=== PATIENT | female | born 1960 | race Two or more races ===

== ENCOUNTER 2024-12-03 19:00 | Inpatient (IN) | payer OTHER ==
[~2024-12-03] VITALS: Ht 154.9 cm; Wt 71.2 kg
[2024-12-03] MEDS ORDERED: ONDANSETRON HCL/PF 4 MG/2 ML VIAL ONE (21:10)
[2024-12-03] MEDS ORDERED: PANTOPRAZOLE 40 MG VIAL ONE (21:10)
[2024-12-03] MEDS: PANTOPRAZOLE 40 MG VIAL IV ONE (21:28)
[2024-12-03] MEDS: ONDANSETRON HCL/PF 4 MG/2 ML VIAL IVP ONE (21:29)
[2024-12-03] MEDS: IV NS 0.9% 500 ML BAG IV ONE (21:29)
[2024-12-03 21:39] LABS: BASOPHILS % (AUTO) 0.1 % (0.0-2.0); EOSINOPHILS # (AUTO) 0.5 K/uL (0.0-0.7); HEMATOCRIT 35 % (33-45); HEMOGLOBIN 10.9 g/dL (11.5-14.8); LYMPHOCYTES # (AUTO) 0.5 K/uL (0.8-4.8); LYMPHOCYTES % (AUTO) 1.9 % (20.0-44.0); MEAN CORPUSCULAR HEMOGLOBIN 27 PG (26.0-33.0); MEAN CORPUSCULAR HGB CONC 31 g/dl (31.0-36.0); MEAN CORPUSCULAR VOLUME 87 fL (82-100); MONOCYTES # (AUTO) 0.2 K/uL (0.1-1.30); MONOCYTES % (AUTO) 0.7 % (2.0-12.0); NEUTROPHILS % (AUTO) 95.3 % (43.0-81.0); PLATELET COUNT (AUTO) 310 K/uL (150-450); RED CELL DISTRIBUTION WIDTH 20.6 % (11.5-15.0); WHITE BLOOD COUNT (AUTO) 24.2 K/uL (4.3-11.0)
[2024-12-03 21:51] LABS: CREATININE 1.1 mg/dL (0.6-1.3); POTASSIUM 4.6 mmol/L (3.5-5.1)
[2024-12-03 22:04] LABS: ALBUMIN 1.6 g/dL (3.4-5.0); BILIRUBIN,DIRECT 0.6 mg/dL (0.0-0.2); BILIRUBIN,TOTAL 0.9 mg/dL (0.2-1.0); TOTAL PROTEIN, SERUM 7.8 g/dL (6.4-8.2)
[2024-12-03] MEDS ORDERED: DEXTROSE 50%-WATER 50 ML DISP.SYRIN ONE (22:07)
[2024-12-03] MEDS: DEXTROSE 50%-WATER 50 ML DISP.SYRIN IVP ONE (22:14)
[2024-12-03 22:34] LABS: LACTIC ACID 6.7 mmol/L (0.4-2.0)
[2024-12-03 22:39] LABS: BILIRUBIN,URINE 1+ (NEGATIVE); BLOOD, URINE 2+ Ery/uL (NEGATIVE); KETONES,URINE TRACE mg/dL (NEGATIVE); LEUKOCYTE ESTERASE ,URINE 2+ (NEGATIVE); NITRITE, URINE NEGATIVE (NEGATIVE); UGLUCOSE NEGATIVE (NEGATIVE)
[2024-12-03] MEDS ORDERED: VANCOMYCIN 1 GM /D5W 250 ML PB IV ONE (22:39)
[2024-12-03] MEDS ORDERED: PIPERACI/TAZO 3.375GM/D5W 50ML PB IV ONE (22:40)
[2024-12-03 22:48] LABS: ADD URINE CULTURE YES; BACTERIA,URINE Many /HPF (None Seen); WBC,URINE 51-80 /HPF (0-3)
[2024-12-03 22:49] LABS: SQUAMOUS EPITHELIAL CELL,UR Few /HPF (None Seen)
[2024-12-03] MEDS: IV NS 0.9% 1,000 ML BAG IV ONE (22:51)
[2024-12-03 22:53] LABS: APPEARANCE,URINE TURBID (CLEAR)
[2024-12-03 22:58] LABS: PROTEIN,URINE 3+ mg/dl (NEGATIVE)
[2024-12-03] MEDS: PIPERACILLIN /TAZOBACTAM 3.375 G in IV D5W 50 ML IV ONE (22:58)
[2024-12-03 23:01] LABS: COLOR,URINE YELLOW (YELLOW)
[2024-12-03 23:11] LABS: ANISOCYTOSIS 1+; LYMPHOCYTES % (MANUAL) 2 % (16-48); MONOCYTES % (MANUAL) 1 % (0-11.0); NEUTROPHILS % (MANUAL) 97 (42-76); PLATELET ESTIMATE ADEQUATE
[2024-12-03 23:27] LABS: SITE, VBG RIGHT RADIAL; VBG COHb 0.3 % (0.5-1.5); VBG HCO3 16.7 mmol/L (22.0-29.0); VBG MetHb 0.1 % (0.5-1.5); VBG O2Hb 94.5 % (0-79); VBG OXYGEN SATURATION 94.9 % (60.0-85.0); VBG PCO2 21.2 mmHg (38.0-54.0); VBG PH 7.513 (7.320-7.430); VBG PO2 76.1 mmHg (23.0-48.0); VBG TOTAL HEMOGLOBIN 9.2 G/dL (12.0-16.0)
[2024-12-03] MEDS: VANCOMYCIN 1 GM in IV D5W 250 ML IV ONE (23:29)
[2024-12-04] VITALS (29 sets, daily range): BP systolic 84–118; BP diastolic 55–79; TEMP 97.8; O2SAT 93–98
[2024-12-04] MEDS: IV NS 0.9% 1,000 ML BAG IV ONE (00:52)
[2024-12-04] MEDS ORDERED: MAG HYDROX/AL HYDROX/SIMETH 30 ML UDC PO PRN (02:30)
[2024-12-04] MEDS ORDERED: ACETAMINOPHEN 325 MG TABLET PO PRN ×2 (02:30→16:00)
[2024-12-04] MEDS ORDERED: MAGNESIUM HYDROXIDE 30 ML UDC PO PRN ×2 (02:30→16:00)
[2024-12-04] MEDS ORDERED: Z GUARD REMEDY 4 OZ OINT TP PRN (02:30)
[2024-12-04] MEDS: IV NS 0.9% 1,000 ML IV SCH (02:44)
[2024-12-04 03:28] LABS: CALCIUM, SERUM 8.2 mg/dL (8.5-10.1); CREATININE 1.3 mg/dL (0.6-1.3)
[2024-12-04] MEDS ORDERED: PIPERACILLIN /TAZOBACTAM 3.375 G in IV D5W 50 ML IV SCH (05:00)
[2024-12-04] MEDS ORDERED: MORPHINE SULFATE INJ 4 MG/ML DISP.SYRIN ONE ×2 (05:04→12:54)
[2024-12-04] MEDS ORDERED: NOREPINEPHRINE 8MG/250ML RTU 250 ML IV ONE ×3 (05:19→12:54)
[2024-12-04] MEDS ORDERED: NOREPINEPHRINE 8 MG in IV D5W 242 ML IV PRN (05:30)
[2024-12-04] MEDS: NOREPINEPHRINE 8 MG in IV D5W 242 ML IV PRN (05:32)
[2024-12-04] MEDS: MORPHINE SULFATE INJ 4 MG/ML DISP.SYRIN IV PRN (05:32)
[2024-12-04] MEDS ORDERED: PIPERACI/TAZO 3.375GM/D5W 50ML PB IV ONE (06:24)
[2024-12-04] MEDS: ZOSYN IVPB 3.375 G in IV D5W 50ml IV ONE (06:30)
[2024-12-04] MEDS ORDERED: ENOXAPARIN SODIUM 40 MG/0.4 ML DISP.SYRIN SQ ONE (06:36)
[2024-12-04] MEDS: ENOXAPARIN SODIUM 40 MG/0.4 ML DISP.SYRIN SQ SCH (06:36)
[2024-12-04] MEDS: IV NS 0.9% 1,000 ML IV PRN (07:30)
[2024-12-04] MEDS ORDERED: BISA10SU11 RC (08:24)
[2024-12-04] MEDS ORDERED: MAGN400O6 PO (08:24)
[2024-12-04] MEDS ORDERED: OXYC1TAB10 PO (08:24)
[2024-12-04] MEDS ORDERED: SENN-261 PO (08:24)
[2024-12-04] MEDS ORDERED: AMIN30LI25 PO (08:24)
[2024-12-04] MEDS ORDERED: MULT-213 PO (08:24)
[2024-12-04] MEDS ORDERED: ASCO500T10 PO (08:24)
[2024-12-04] MEDS ORDERED: CALC-494 PO (08:24)
[2024-12-04] MEDS ORDERED: ZINC220C6 PO (08:24)
[2024-12-04] MEDS ORDERED: LACT10SO29 PO (08:24)
[2024-12-04] MEDS ORDERED: LEVO75TA7 PO (08:24)
[2024-12-04] MEDS ORDERED: POTA-88 PO (08:24)
[2024-12-04] MEDS ORDERED: FERR325T24 PO (08:24)
[2024-12-04] MEDS ORDERED: ACET325T53 PO (08:24)
[2024-12-04] MEDS ORDERED: ALBU18HF2 IH (08:24)
[2024-12-04] MEDS ORDERED: FURO20TA4 PO (08:24)
[2024-12-04] MEDS ORDERED: ONDA-97 PO (08:24)
[2024-12-04] MEDS ORDERED: NA P133E RC (08:24)
[2024-12-04] MEDS: PANTOPRAZOLE 40 MG VIAL IV SCH (09:00)
[2024-12-04] MEDS ORDERED: PANTOPRAZOLE 40 MG VIAL ONE (09:07)
[2024-12-04] MEDS: DAKINS QUARTER STRENGTH (0.125%) 480 ML BOTTLE TOP SCH (10:59)
[2024-12-04] MEDS ORDERED: ONDANSETRON HCL/PF 4 MG/2 ML VIAL ONE (12:54)
[2024-12-04] MEDS: ONDANSETRON HCL/PF 4 MG/2 ML VIAL IVP PRN (13:15)
[2024-12-04] MEDS: ZOSYN IVPB 2.25 G in IV D5W 50ml IV SCH (13:30)
[2024-12-04] MEDS ORDERED: METH10OR11 PO (14:46)
[2024-12-04 15:16] LABS: HEMATOCRIT 25 % (33-45)
[2024-12-04 15:23] LABS: EOSINOPHILS # (AUTO) 1.1 K/uL (0.0-0.7); EOSINOPHILS % (AUTO) 2.6 % (0.0-6.0); HEMOGLOBIN 7.9 g/dL (11.5-14.8); LYMPHOCYTES # (AUTO) 0.6 K/uL (0.8-4.8); LYMPHOCYTES % (AUTO) 1.4 % (20.0-44.0); MEAN CORPUSCULAR HEMOGLOBIN 27 PG (26.0-33.0); MEAN CORPUSCULAR HGB CONC 32 g/dl (31.0-36.0); MEAN CORPUSCULAR VOLUME 85 fL (82-100); MONOCYTES # (AUTO) 0.4 K/uL (0.1-1.30); MONOCYTES % (AUTO) 0.9 % (2.0-12.0); NEUTROPHILS # (AUTO) 41.9 K/uL (1.8-8.9); NEUTROPHILS % (AUTO) 95.1 % (43.0-81.0); PLATELET COUNT (AUTO) 283 K/uL (150-450); RED BLOOD CELL COUNT(AUTO) 2.92 MIL/uL (4.0-5.2); RED CELL DISTRIBUTION WIDTH 20.4 % (11.5-15.0)
[2024-12-04 15:25] LABS: WHITE BLOOD COUNT (AUTO) 44.1 K/uL (4.3-11.0)
[2024-12-04 15:31] LABS: BILIRUBIN,TOTAL 0.7 mg/dL (0.2-1.0); CALCIUM, SERUM 7.9 mg/dL (8.5-10.1); CREATININE 0.8 mg/dL (0.6-1.3); MAGNESIUM 1.3 mg/dL (1.8-2.4); PHOSPHORUS 4.3 mg/dL (2.5-4.9); POTASSIUM 3.3 mmol/L (3.5-5.1); TOTAL PROTEIN, SERUM 6.1 g/dL (6.4-8.2)
[2024-12-04 15:36] LABS: ALBUMIN 1.3 g/dL (3.4-5.0)
[2024-12-04 15:37] LABS: THYROID STIMULATING HORMONE 4.3 uIU/mL (0.358-3.74)
[2024-12-04 16:00] LABS: LACTIC ACID 2.4 mmol/L (0.4-2.0)
[2024-12-04] MEDS ORDERED: NA PHOS,M-B/NA PHOS,DI-BA 1 EA ENEMA RC PRN (16:00)
[2024-12-04] MEDS ORDERED: LACTULOSE 10 G/15 ML UDC (PYXIS) PO PRN (16:07)
[2024-12-04] MEDS: Magnesium 1GM/D5W 100ML PREMIX 100 ML IV SCH (16:26)
[2024-12-04] MEDS: POTASSIUM CHLORIDE 20 MEQ TAB.PRT.SR PO SCH (16:26)
[2024-12-04] MEDS: FERROUS SULFATE (325 MG) 325 MG/TAB TABLET PO SCH (16:26)
[2024-12-04] MEDS: PROSOURCE / PROSTAT (PYXIS) 30 ML UDC PO SCH (16:27)
[2024-12-04] MEDS ORDERED: ALBUTEROL FS 2.5 MG/0.5 ML VIAL.NEB NEB PRN (16:30)
[2024-12-04] MEDS: CALCIUM CARBONATE 500 MG TAB.CHEW PO SCH (17:00)
[2024-12-04 17:14] LABS: ANISOCYTOSIS 1+; BAND % (MANUAL) 1 % (0.0-5.0); BASOPHILS % (MANUAL) 0 % (0.0-2.0); EOSINOPHILS % (MANUAL) 0 % (0-4); LYMPHOCYTES % (MANUAL) 3 % (16-48); MONOCYTES % (MANUAL) 0 % (0-11.0); NEUTROPHILS % (MANUAL) 96 (42-76); PLATELET ESTIMATE ADEQUATE
[2024-12-04] MEDS: oxyCODONE/APAP (5/325 MG) 1 UDTAB TABLET PO PRN (17:40)
[2024-12-04] MEDS: SENNOSIDES 8.6 MG TABLET PO SCH (22:00)
[2024-12-04] MEDS: VANCOMYCIN 1 GM in IV D5W 250ml IV SCH (22:15)
[2024-12-05] VITALS (96 sets, daily range): BP systolic 83–116; BP diastolic 49–81; TEMP 97.2–99.3; O2SAT 91–97
[2024-12-05 04:55] LABS: BILIRUBIN,TOTAL 0.5 mg/dL (0.2-1.0); CALCIUM, SERUM 7.5 mg/dL (8.5-10.1); CREATININE 0.6 mg/dL (0.6-1.3); MAGNESIUM 2.2 mg/dL (1.8-2.4); PHOSPHORUS 3.7 mg/dL (2.5-4.9); TOTAL PROTEIN, SERUM 5.7 g/dL (6.4-8.2)
[2024-12-05 05:00] LABS: ALBUMIN 1.1 g/dL (3.4-5.0); POTASSIUM 2.8 mmol/L (3.5-5.1)
[2024-12-05 05:04] LABS: EOSINOPHILS # (AUTO) 0.5 K/uL (0.0-0.7); EOSINOPHILS % (AUTO) 1.5 % (0.0-6.0); HEMATOCRIT 25 % (33-45); LYMPHOCYTES # (AUTO) 0.4 K/uL (0.8-4.8); LYMPHOCYTES % (AUTO) 1.2 % (20.0-44.0); MEAN CORPUSCULAR HEMOGLOBIN 27 PG (26.0-33.0); MEAN CORPUSCULAR HGB CONC 31 g/dl (31.0-36.0); MEAN CORPUSCULAR VOLUME 86 fL (82-100); MONOCYTES # (AUTO) 0.2 K/uL (0.1-1.30); MONOCYTES % (AUTO) 0.7 % (2.0-12.0); NEUTROPHILS # (AUTO) 30.8 K/uL (1.8-8.9); NEUTROPHILS % (AUTO) 96.6 % (43.0-81.0); PLATELET COUNT (AUTO) 201 K/uL (150-450); RED BLOOD CELL COUNT(AUTO) 2.94 MIL/uL (4.0-5.2); RED CELL DISTRIBUTION WIDTH 20.4 % (11.5-15.0)
[2024-12-05 05:07] LABS: WHITE BLOOD COUNT (AUTO) 31.9 K/uL (4.3-11.0)
[2024-12-05 05:38] LABS: BASOPHILS % (MANUAL) 0 % (0.0-2.0); EOSINOPHILS % (MANUAL) 0 % (0-4); LYMPHOCYTES % (MANUAL) 4 % (16-48); MONOCYTES % (MANUAL) 1 % (0-11.0); NEUTROPHILS % (MANUAL) 95 (42-76); PLATELET ESTIMATE ADEQUATE
[2024-12-05] MEDS: POTASSIUM CL. PREMIX PERIPHER. 50 ML IV SCH (05:52)
[2024-12-05] MEDS: POTASSIUM CHLORIDE 20 MEQ POWDER PACKET PO ONE (05:52)
[2024-12-05] MEDS: LEVOTHYROXINE SODIUM 75 MCG TABLET PO SCH (07:23)
[2024-12-05] MEDS: BISACODYL SUPP (10 MG) 10 MG/SUPP.RECT SUPP.RECT RC SCH (08:21)
[2024-12-05] MEDS: ASCORBIC ACID 500 MG TABLET PO SCH (08:21)
[2024-12-05] MEDS: ZINC SULFATE 220 MG CAPSULE PO SCH (08:21)
[2024-12-05] MEDS: MULTIVIT W/MINERALS 1 TAB TABLET PO SCH (08:21)
[2024-12-05] MEDS: METHADONE HCL 10 MG TABLET PO SCH (09:04)
[2024-12-05] MEDS: ZOSYN IVPB 3.375 G in IV D5W 50ml IV SCH (12:47)
[2024-12-05 13:33] LABS: CALCIUM, SERUM 7.4 mg/dL (8.5-10.1); CREATININE 0.6 mg/dL (0.6-1.3); POTASSIUM 3.5 mmol/L (3.5-5.1)
[2024-12-05 15:14] LABS: CALCIUM, SERUM 7.1 mg/dL (8.5-10.1); CREATININE 0.5 mg/dL (0.6-1.3); POTASSIUM 3.6 mmol/L (3.5-5.1)
[2024-12-05] MEDS: VANCOMYCIN 1 GM in IV D5W 250ml IV SCH (17:06)
[2024-12-06] VITALS (79 sets, daily range): BP systolic 83–123; BP diastolic 44–85; TEMP 98.3–99.3; O2SAT 90–95
[2024-12-06 04:40] LABS: EOSINOPHILS # (AUTO) 0.3 K/uL (0.0-0.7); EOSINOPHILS % (AUTO) 1.3 % (0.0-6.0); HEMATOCRIT 22 % (33-45); LYMPHOCYTES # (AUTO) 0.7 K/uL (0.8-4.8); LYMPHOCYTES % (AUTO) 2.8 % (20.0-44.0); MEAN CORPUSCULAR HEMOGLOBIN 28 PG (26.0-33.0); MEAN CORPUSCULAR HGB CONC 32 g/dl (31.0-36.0); MEAN CORPUSCULAR VOLUME 86 fL (82-100); MONOCYTES # (AUTO) 0.4 K/uL (0.1-1.30); MONOCYTES % (AUTO) 1.5 % (2.0-12.0); NEUTROPHILS # (AUTO) 23.1 K/uL (1.8-8.9); NEUTROPHILS % (AUTO) 94.4 % (43.0-81.0); PLATELET COUNT (AUTO) 164 K/uL (150-450); RED BLOOD CELL COUNT(AUTO) 2.52 MIL/uL (4.0-5.2); RED CELL DISTRIBUTION WIDTH 20.4 % (11.5-15.0); WHITE BLOOD COUNT (AUTO) 24.4 K/uL (4.3-11.0)
[2024-12-06 05:08] LABS: CALCIUM, SERUM 7.3 mg/dL (8.5-10.1); CREATININE 0.4 mg/dL (0.6-1.3); MAGNESIUM 1.7 mg/dL (1.8-2.4); PHOSPHORUS 2.9 mg/dL (2.5-4.9); POTASSIUM 3.2 mmol/L (3.5-5.1)
[2024-12-06] MEDS: POTASSIUM CL. PREMIX PERIPHER. 50 ML IV SCH (06:45)
[2024-12-06] MEDS: PANTOPRAZOLE 40 MG/PACK PACK NG SCH (09:16)
[2024-12-06] MEDS: MINERAL OIL/PETROLATUM,WHITE 120 GM JAR TP PRN (10:14)
[2024-12-06] MEDS: MIDODRINE HCL (5MG) 5 MG TABLET PO SCH (12:42)
[2024-12-06] MEDS: Magnesium 1GM/D5W 100ML PREMIX 100 ML IV SCH (12:42)
[2024-12-06] MEDS: COD LIVER OIL/ZINC OXIDE 120 GM TUBE TP SCH (18:48)
[2024-12-06] MEDS: VANCOMYCIN HCL 1.25 GM in IV D5W 250 ML IV SCH (21:19)
[2024-12-07] VITALS (94 sets, daily range): BP systolic 86–146; BP diastolic 52–134; TEMP 97.9–98.5; O2SAT 90–97
[2024-12-07 05:39] LABS: EOSINOPHILS # (AUTO) 0.2 K/uL (0.0-0.7); EOSINOPHILS % (AUTO) 1.3 % (0.0-6.0); HEMATOCRIT 21 % (33-45); LYMPHOCYTES # (AUTO) 0.7 K/uL (0.8-4.8); LYMPHOCYTES % (AUTO) 4.3 % (20.0-44.0); MEAN CORPUSCULAR HEMOGLOBIN 28 PG (26.0-33.0); MEAN CORPUSCULAR HGB CONC 33 g/dl (31.0-36.0); MEAN CORPUSCULAR VOLUME 86 fL (82-100); MONOCYTES # (AUTO) 0.3 K/uL (0.1-1.30); MONOCYTES % (AUTO) 1.7 % (2.0-12.0); NEUTROPHILS % (AUTO) 92.7 % (43.0-81.0); PLATELET COUNT (AUTO) 128 K/uL (150-450); RED BLOOD CELL COUNT(AUTO) 2.39 MIL/uL (4.0-5.2); RED CELL DISTRIBUTION WIDTH 20.6 % (11.5-15.0); WHITE BLOOD COUNT (AUTO) 15.1 K/uL (4.3-11.0)
[2024-12-07 05:48] LABS: HEMOGLOBIN 6.8 g/dL (11.5-14.8)
[2024-12-07 05:53] LABS: CALCIUM, SERUM 7.3 mg/dL (8.5-10.1); CREATININE 0.6 mg/dL (0.6-1.3); MAGNESIUM 1.9 mg/dL (1.8-2.4); PHOSPHORUS 2.6 mg/dL (2.5-4.9); POTASSIUM 3.5 mmol/L (3.5-5.1)
[2024-12-07 05:57] LABS: BAND % (MANUAL) 3 % (0.0-5.0); BASOPHILS % (MANUAL) 0 % (0.0-2.0); EOSINOPHILS % (MANUAL) 0 % (0-4); LYMPHOCYTES % (MANUAL) 5 % (16-48); MONOCYTES % (MANUAL) 2 % (0-11.0); NEUTROPHILS % (MANUAL) 90 (42-76); PLATELET ESTIMATE DECREASED
[2024-12-07 05:58] LABS: ANISOCYTOSIS 1+; HYPOCHROMASIA 1+
[2024-12-07 06:38] LABS: URIC ACID 2.7 mg/dL (2.6-7.2)
[2024-12-07 07:01] LABS: THYROID STIMULATING HORMONE 8.57 uIU/mL (0.358-3.74)
[2024-12-08] VITALS (97 sets, daily range): BP systolic 63–122; BP diastolic 45–80; TEMP 97.7–97.9; O2SAT 91–99
[2024-12-08 05:30] LABS: BASOPHILS % (AUTO) 0.1 % (0.0-2.0); EOSINOPHILS # (AUTO) 0.1 K/uL (0.0-0.7); EOSINOPHILS % (AUTO) 1.5 % (0.0-6.0); HEMATOCRIT 23 % (33-45); HEMOGLOBIN 7.6 g/dL (11.5-14.8); LYMPHOCYTES # (AUTO) 0.7 K/uL (0.8-4.8); LYMPHOCYTES % (AUTO) 7.3 % (20.0-44.0); MEAN CORPUSCULAR HEMOGLOBIN 28 PG (26.0-33.0); MEAN CORPUSCULAR HGB CONC 33 g/dl (31.0-36.0); MEAN CORPUSCULAR VOLUME 85 fL (82-100); MONOCYTES # (AUTO) 0.2 K/uL (0.1-1.30); MONOCYTES % (AUTO) 2.6 % (2.0-12.0); NEUTROPHILS # (AUTO) 8.6 K/uL (1.8-8.9); NEUTROPHILS % (AUTO) 88.5 % (43.0-81.0); PLATELET COUNT (AUTO) 87 K/uL (150-450); RED BLOOD CELL COUNT(AUTO) 2.74 MIL/uL (4.0-5.2); RED CELL DISTRIBUTION WIDTH 21.1 % (11.5-15.0); WHITE BLOOD COUNT (AUTO) 9.7 K/uL (4.3-11.0)
[2024-12-08 05:32] LABS: CALCIUM, SERUM 7.3 mg/dL (8.5-10.1); CREATININE 0.7 mg/dL (0.6-1.3); POTASSIUM 3.1 mmol/L (3.5-5.1)
[2024-12-08 06:33] LABS: ANISOCYTOSIS 1+; BASOPHILS % (MANUAL) 0 % (0.0-2.0); EOSINOPHILS % (MANUAL) 2 % (0-4); HYPOCHROMASIA FEW; LYMPHOCYTES % (MANUAL) 9 % (16-48); MONOCYTES % (MANUAL) 3 % (0-11.0); NEUTROPHILS % (MANUAL) 86 (42-76); PLATELET ESTIMATE DECREASED
[2024-12-08] MEDS: POTASSIUM CHLORIDE 20 MEQ POWDER PACKET PO SCH (10:42)
[2024-12-08] MEDS ORDERED: MORPHINE SULFATE INJ 2 MG/ML DISP.SYRIN IV PRN (13:00)
[2024-12-08] MEDS: CEFTRIAXONE 2 G in IV D5W 100 ML IV SCH (14:07)
[2024-12-08] MEDS: VANCOMYCIN 750 MG in IV D5W 250 ML IV SCH (16:06)
[2024-12-09] VITALS (93 sets, daily range): BP systolic 94–136; BP diastolic 54–94; TEMP 97.8–98.7; O2SAT 79–100
[2024-12-09 05:37] LABS: BASOPHILS % (AUTO) 0.1 % (0.0-2.0); EOSINOPHILS # (AUTO) 0.1 K/uL (0.0-0.7); EOSINOPHILS % (AUTO) 0.7 % (0.0-6.0); HEMATOCRIT 25 % (33-45); LYMPHOCYTES # (AUTO) 0.8 K/uL (0.8-4.8); LYMPHOCYTES % (AUTO) 6.6 % (20.0-44.0); MEAN CORPUSCULAR HEMOGLOBIN 27 PG (26.0-33.0); MEAN CORPUSCULAR HGB CONC 32 g/dl (31.0-36.0); MEAN CORPUSCULAR VOLUME 85 fL (82-100); MONOCYTES # (AUTO) 0.3 K/uL (0.1-1.30); MONOCYTES % (AUTO) 2.3 % (2.0-12.0); NEUTROPHILS # (AUTO) 11.1 K/uL (1.8-8.9); NEUTROPHILS % (AUTO) 90.3 % (43.0-81.0); PLATELET COUNT (AUTO) 89 K/uL (150-450); RED BLOOD CELL COUNT(AUTO) 2.92 MIL/uL (4.0-5.2); RED CELL DISTRIBUTION WIDTH 21.1 % (11.5-15.0); WHITE BLOOD COUNT (AUTO) 12.3 K/uL (4.3-11.0)
[2024-12-09 05:53] LABS: CALCIUM, SERUM 7.1 mg/dL (8.5-10.1); CREATININE 0.8 mg/dL (0.6-1.3); MAGNESIUM 1.4 mg/dL (1.8-2.4); PHOSPHORUS 3.8 mg/dL (2.5-4.9); POTASSIUM 2.9 mmol/L (3.5-5.1)
[2024-12-09 08:57] LABS: LYMPHOCYTES % (MANUAL) 3 % (16-48); MONOCYTES % (MANUAL) 3 % (0-11.0); NEUTROPHILS % (MANUAL) 94 (42-76)
[2024-12-09 08:58] LABS: ANISOCYTOSIS 1+; PLATELET ESTIMATE DECREASED; STOMATOCYTES 1+
[2024-12-09] MEDS: POTASSIUM CHLORIDE 20 MEQ TAB.PRT.SR PO ONE (10:08)
[2024-12-09] MEDS: Magnesium 1GM/D5W 100ML PREMIX 100 ML IV SCH (10:10)
[2024-12-10] VITALS (74 sets, daily range): BP systolic 89–123; BP diastolic 50–84; TEMP 98–98.5; O2SAT 88–99
[2024-12-10 05:40] LABS: BASOPHILS % (AUTO) 0.4 % (0.0-2.0); EOSINOPHILS # (AUTO) 0.1 K/uL (0.0-0.7); EOSINOPHILS % (AUTO) 0.8 % (0.0-6.0); HEMATOCRIT 25 % (33-45); LYMPHOCYTES # (AUTO) 0.8 K/uL (0.8-4.8); LYMPHOCYTES % (AUTO) 8.5 % (20.0-44.0); MEAN CORPUSCULAR HEMOGLOBIN 28 PG (26.0-33.0); MEAN CORPUSCULAR HGB CONC 32 g/dl (31.0-36.0); MEAN CORPUSCULAR VOLUME 85 fL (82-100); MONOCYTES # (AUTO) 0.3 K/uL (0.1-1.30); MONOCYTES % (AUTO) 2.9 % (2.0-12.0); NEUTROPHILS # (AUTO) 8.5 K/uL (1.8-8.9); NEUTROPHILS % (AUTO) 87.4 % (43.0-81.0); PLATELET COUNT (AUTO) 77 K/uL (150-450); RED BLOOD CELL COUNT(AUTO) 2.91 MIL/uL (4.0-5.2); RED CELL DISTRIBUTION WIDTH 21.4 % (11.5-15.0); WHITE BLOOD COUNT (AUTO) 9.7 K/uL (4.3-11.0)
[2024-12-10 06:52] LABS: CALCIUM, SERUM 7.3 mg/dL (8.5-10.1); CREATININE 0.8 mg/dL (0.6-1.3); MAGNESIUM 1.6 mg/dL (1.8-2.4); POTASSIUM 3.3 mmol/L (3.5-5.1)
[2024-12-10] MEDS: PANTOPRAZOLE 40 MG TABLET.DR PO SCH (08:12)
[2024-12-10] MEDS ORDERED: Magnesium 1GM/D5W 100ML PREMIX 100 ML IV SCH (09:30)
[2024-12-10] MEDS: POTASSIUM CHLORIDE 20 MEQ TAB.PRT.SR PO ONE (09:51)
[2024-12-10] MEDS: MAGNESIUM OXIDE 400 MG TABLET PO ONE (09:52)
[2024-12-10 11:39] LABS: EOSINOPHILS % (MANUAL) 1 % (0-4); LYMPHOCYTES % (MANUAL) 11 % (16-48); MONOCYTES % (MANUAL) 2 % (0-11.0); NEUTROPHILS % (MANUAL) 86 (42-76); PLATELET ESTIMATE DECREASED
[2024-12-10 11:40] LABS: ANISOCYTOSIS 1+; STOMATOCYTES 1+
[2024-12-10] MEDS: VANCOMYCIN 1 GM in IV D5W 250ml IV SCH (15:34)
[2024-12-11] VITALS (22 sets, daily range): BP systolic 96–123; BP diastolic 52–68; TEMP 97.7–98.8; O2SAT 93–100
[2024-12-11 05:08] LABS: BASOPHILS % (AUTO) 0.2 % (0.0-2.0); EOSINOPHILS % (AUTO) 0.6 % (0.0-6.0); HEMATOCRIT 23 % (33-45); HEMOGLOBIN 7.5 g/dL (11.5-14.8); LYMPHOCYTES # (AUTO) 0.8 K/uL (0.8-4.8); LYMPHOCYTES % (AUTO) 9.1 % (20.0-44.0); MEAN CORPUSCULAR HEMOGLOBIN 28 PG (26.0-33.0); MEAN CORPUSCULAR HGB CONC 32 g/dl (31.0-36.0); MEAN CORPUSCULAR VOLUME 86 fL (82-100); MONOCYTES # (AUTO) 0.3 K/uL (0.1-1.30); MONOCYTES % (AUTO) 3.2 % (2.0-12.0); NEUTROPHILS # (AUTO) 7.5 K/uL (1.8-8.9); NEUTROPHILS % (AUTO) 86.9 % (43.0-81.0); PLATELET COUNT (AUTO) 67 K/uL (150-450); RED BLOOD CELL COUNT(AUTO) 2.72 MIL/uL (4.0-5.2); RED CELL DISTRIBUTION WIDTH 20.7 % (11.5-15.0); WHITE BLOOD COUNT (AUTO) 8.6 K/uL (4.3-11.0)
[2024-12-11 05:17] LABS: CALCIUM, SERUM 7.2 mg/dL (8.5-10.1); CREATININE 0.8 mg/dL (0.6-1.3); MAGNESIUM 1.4 mg/dL (1.8-2.4); POTASSIUM 3.1 mmol/L (3.5-5.1)
[2024-12-11 06:14] LABS: ANISOCYTOSIS 1+; EOSINOPHILS % (MANUAL) 1 % (0-4); LYMPHOCYTES % (MANUAL) 7 % (16-48); MONOCYTES % (MANUAL) 4 % (0-11.0); NEUTROPHILS % (MANUAL) 88 (42-76); PLATELET ESTIMATE DECREASED
[2024-12-11 06:15] LABS: OVALOCYTES 1+
[2024-12-11] MEDS: MAGNESIUM OXIDE 400 MG TABLET PO ONE (11:18)
[2024-12-11] MEDS: POTASSIUM CHLORIDE 20 MEQ TAB.PRT.SR PO SCH (11:18)
[2024-12-12] VITALS (9 sets, daily range): BP systolic 100–115; BP diastolic 59–71; TEMP 98.1–99.5; O2SAT 93–96
[2024-12-12 07:49] LABS: CALCIUM, SERUM 7.2 mg/dL (8.5-10.1); CREATININE 0.7 mg/dL (0.6-1.3); POTASSIUM 3.2 mmol/L (3.5-5.1)
[2024-12-12] MEDS: LIDOCAINE 2%-EPI 1:100,000 30 ML VIAL TP ONE (10:00)
[2024-12-12] MEDS ORDERED: MINERAL OIL/PETROLATUM,WHITE 120 GM JAR TP PRN ×2 (11:00)
[2024-12-12] MEDS: POTASSIUM CHLORIDE 20 MEQ TAB.PRT.SR PO SCH (13:08)
[2024-12-13] VITALS (9 sets, daily range): BP systolic 104–141; BP diastolic 66–73; TEMP 97.7–98.8; O2SAT 91–97
[2024-12-13 06:28] LABS: CALCIUM, SERUM 7.3 mg/dL (8.5-10.1); CREATININE 0.6 mg/dL (0.6-1.3); POTASSIUM 3.2 mmol/L (3.5-5.1)
[2024-12-13] MEDS: POTASSIUM CHLORIDE 20 MEQ TAB.PRT.SR PO SCH (09:50)
[2024-12-14] VITALS: BP 121/72; TEMP 98.8; O2SAT 94
[2024-12-14 04:26] VITALS: BP 111/64; TEMP 98.7; O2SAT 95
[2024-12-14 07:00] VITALS: BP 110/69; TEMP 98.2; O2SAT 93
[2024-12-14 07:09] LABS: BASOPHILS % (AUTO) 0.2 % (0.0-2.0); EOSINOPHILS # (AUTO) 0.1 K/uL (0.0-0.7); EOSINOPHILS % (AUTO) 0.9 % (0.0-6.0); HEMATOCRIT 23 % (33-45); HEMOGLOBIN 7.3 g/dL (11.5-14.8); LYMPHOCYTES # (AUTO) 0.9 K/uL (0.8-4.8); LYMPHOCYTES % (AUTO) 11.7 % (20.0-44.0); MEAN CORPUSCULAR HEMOGLOBIN 28 PG (26.0-33.0); MEAN CORPUSCULAR HGB CONC 33 g/dl (31.0-36.0); MEAN CORPUSCULAR VOLUME 86 fL (82-100); MONOCYTES # (AUTO) 0.3 K/uL (0.1-1.30); MONOCYTES % (AUTO) 4.2 % (2.0-12.0); NEUTROPHILS # (AUTO) 6.6 K/uL (1.8-8.9); PLATELET COUNT (AUTO) 77 K/uL (150-450); RED BLOOD CELL COUNT(AUTO) 2.61 MIL/uL (4.0-5.2); RED CELL DISTRIBUTION WIDTH 22.6 % (11.5-15.0)
[2024-12-14 07:25] LABS: CALCIUM, SERUM 7.1 mg/dL (8.5-10.1); CREATININE 0.7 mg/dL (0.6-1.3); MAGNESIUM 1.4 mg/dL (1.8-2.4); PHOSPHORUS 3.3 mg/dL (2.5-4.9); POTASSIUM 3.1 mmol/L (3.5-5.1)
[2024-12-14 08:55] LABS: EOSINOPHILS % (MANUAL) 1 % (0-4); LYMPHOCYTES % (MANUAL) 6 % (16-48); MONOCYTES % (MANUAL) 5 % (0-11.0); NEUTROPHILS % (MANUAL) 88 (42-76)
[2024-12-14 08:56] LABS: ANISOCYTOSIS 2+; PLATELET ESTIMATE DECREASED
[2024-12-14] MEDS ORDERED: MIDO5TAB4 PO (11:11)
[2024-12-14] MEDS ORDERED: CEFT2FRO2 IV (11:11)
[2024-12-14] MEDS ORDERED: SODI473S8 TOP (11:11)
[2024-12-14 11:30] VITALS: BP 114/63; TEMP 97.9; O2SAT 94
[2024-12-14] MEDS: Magnesium 1GM/D5W 100ML PREMIX 100 ML IV SCH (13:40)
[2024-12-14 13:41] VITALS: BP 114/63
[2024-12-14] MEDS: POTASSIUM CHLORIDE 20 MEQ TAB.PRT.SR PO SCH (13:42)
== END 2024-12-14 18:04 | DRG 720 ==
LOC: ER 19:02 → TRANSITION 12-04 03:06 → ICU 12-04 14:01 → TELE 12-11 19:49
PROVIDERS: ATTEND Nurse Practitioner Acute Care
PROC: 0JH63XZ Insertion of Tunneled Vascular Access Device into Chest Subcutaneous Tissue and Fascia, Percutaneous Approach (ICD-10-PCS; 2024-12-04)
PROC: 05HN33Z Insertion of Infusion Device into Left Internal Jugular Vein, Percutaneous Approach (ICD-10-PCS; 2024-12-04)
PROC: B544ZZA Ultrasonography of Left Jugular Veins, Guidance (ICD-10-PCS; 2024-12-04)
PROC: 30233N1 Transfusion of Nonautologous Red Blood Cells into Peripheral Vein, Percutaneous Approach (ICD-10-PCS; principal; 2024-12-07)
PROC: 30233N1 Transfusion of Nonautologous Red Blood Cells into Peripheral Vein, Percutaneous Approach (ICD-10-PCS; 2024-12-07)
DX: A41.89 Other specified sepsis (principal); R65.21 Severe sepsis with septic shock; E43 Unspecified severe protein-calorie malnutrition; E87.20 Acidosis, unspecified; L89.154 Pressure ulcer of sacral region, stage 4; D68.59 Other primary thrombophilia; N17.9 Acute kidney failure, unspecified; G82.20 Paraplegia, unspecified; E87.1 Hypo-osmolality and hyponatremia; L89.326 Pressure-induced deep tissue damage of left buttock; L89.156 Pressure-induced deep tissue damage of sacral region; E88.09 Other disorders of plasma-protein metabolism, not elsewhere classified; N39.0 Urinary tract infection, site not specified; Z74.01 Bed confinement status; Z85.048 Personal history of other malignant neoplasm of rectum, rectosigmoid junction, and anus; Z85.528 Personal history of other malignant neoplasm of kidney; Z92.21 Personal history of antineoplastic chemotherapy; I10 Essential (primary) hypertension; Z87.81 Personal history of (healed) traumatic fracture; Z98.890 Other specified postprocedural states; J45.909 Unspecified asthma, uncomplicated; E03.9 Hypothyroidism, unspecified; Z79.890 Hormone replacement therapy; Z79.899 Other long term (current) drug therapy; Z79.51 Long term (current) use of inhaled steroids; B96.89 Other specified bacterial agents as the cause of diseases classified elsewhere; D64.9 Anemia, unspecified; M89.8X9 Other specified disorders of bone, unspecified site; I70.0 Atherosclerosis of aorta; F31.9 Bipolar disorder, unspecified; R91.8 Other nonspecific abnormal finding of lung field; L60.3 Nail dystrophy; E87.6 Hypokalemia; E86.1 Hypovolemia; E83.42 Hypomagnesemia; E86.0 Dehydration; L89.226 Pressure-induced deep tissue damage of left hip; M46.28 Osteomyelitis of vertebra, sacral and sacrococcygeal region; R33.9 Retention of urine, unspecified; M62.40 Contracture of muscle, unspecified site
CPT/HCPCS: 36415; 36600; 71045-TC; 80048-TC; 80053-TC; 80076-TC; 80202-TC; 81001; 82803-TC; 82962-TC; 83605-TC; 83690-TC; 83735-TC; 83935-TC; 84100-TC; 84439-TC; 84443-TC; 84550-TC; 85025-TC; 86480; 86850-TC; 87040-TC; 87081-TC; 87086-TC; 87186-TC; 87899; 93307-TC; 97110-TC; 97530-TC; A4223; A6253; A6403; G0378; J0696; J1650; J2270; J2405; J2470; J2543; J3370; J3371; J3475; J3480; J3490; J7030; J7040; J7050; J7060; P9016

== ENCOUNTER 2025-10-19 07:56 | Emergency (ER) | payer OTHER ==
[~2025-10-19] VITALS: Ht 157.5 cm; Wt 65.8 kg
[~2025-10-19 07:56] MED LIST: ACET325T53 PO; ALBU18HF2 IH; AMIN30LI25 PO; ASCO500T10 PO; BISA10SU11 RC; CALC-494 PO; CEFT2FRO2 IV; FERR325T24 PO; FURO20TA4 PO; LACT10SO29 PO; LEVO75TA7 PO; MAGN400O6 PO; METH10OR11 PO; MIDO5TAB4 PO; MULT-213 PO; NA P133E RC; ONDA-97 PO; OXYC1TAB10 PO; POTA-88 PO; SENN-261 PO; SODI473S8 TOP; ZINC220C6 PO
[2025-10-19 08:42] LABS: PLATELET COUNT (AUTO) 498 K/uL (150-450); RED BLOOD CELL COUNT(AUTO) 3.75 MIL/uL (4.0-5.2); RED CELL DISTRIBUTION WIDTH 17.8 % (11.5-15.0); WHITE BLOOD COUNT (AUTO) 7.9 K/uL (4.3-11.0)
[2025-10-19 08:52] LABS: CALCIUM, SERUM 9.1 mg/dL (8.5-10.1); CREATININE 0.7 mg/dL (0.6-1.3); SODIUM SERUM 137 mmol/L (136-145); UREA NITROGEN, BLOOD 20 mg/dL (7-18)
[2025-10-19 09:03] LABS: ASPARTATE AMINOTRANSFERASE 17 U/L (15-37); TOTAL PROTEIN, SERUM 8.8 g/dL (6.4-8.2)
[2025-10-19 09:13] LABS: INR 1.08 (0.91-1.10)
[2025-10-19] MEDS ORDERED: CRAN425C6 PO (10:23)
[2025-10-19] MEDS ORDERED: OMEG-162 PO (10:23)
[2025-10-19] MEDS ORDERED: METH-649 PO (10:23)
[2025-10-19] MEDS ORDERED: OXYC15TA2 PO (10:23)
[2025-10-19] MEDS ORDERED: CLOT15CR27 TP (10:23)
[2025-10-19] MEDS ORDERED: LEVO100T9 PO (10:23)
[2025-10-19 11:45] LABS: PLATELET COUNT (AUTO) 459 K/uL (150-450); RED BLOOD CELL COUNT(AUTO) 3.77 MIL/uL (4.0-5.2); RED CELL DISTRIBUTION WIDTH 17.9 % (11.5-15.0); WHITE BLOOD COUNT (AUTO) 7.7 K/uL (4.3-11.0)
[2025-10-19] MEDS ORDERED: IOHEXOL-300 100 ML VIAL IV ONE (11:53)
[2025-10-19] MEDS ORDERED: IV NS 0.9% 250 ML IV ONE (11:53)
[2025-10-19] MEDS ORDERED: CT SWABBABLE VALVE TRANS SET 1 EA INFUS.SET MC ONE (11:53)
[2025-10-19] MEDS ORDERED: ONDANSETRON HCL/PF 4 MG/2 ML VIAL ONE (12:33)
[2025-10-19] MEDS ORDERED: MORPHINE SULFATE INJ 4 MG/ML DISP.SYRIN ONE (12:33)
[2025-10-19] MEDS: MORPHINE SULFATE INJ 2 MG/ML DISP.SYRIN IV ONE (12:46)
[2025-10-19] MEDS: ONDANSETRON HCL/PF - ER 4 MG/2 ML VIAL IV ONE (12:47)
[2025-10-19] MEDS ORDERED: CEFTRIAXONE 1GM BAG (ER ONLY) 50 ML IV ONE (16:20)
[2025-10-19] MEDS: CEFTRIAXONE 1 G in IV D5W 50 ML IV ONE (16:23)
[2025-10-19 19:10] VITALS: BP 102/64; TEMP 98.1; O2SAT 95
== END 2025-10-19 19:11 | disposition home or self-care (01) ==
LOC: ER 08:24
DX: K92.2 Gastrointestinal hemorrhage, unspecified (principal); C19 Malignant neoplasm of rectosigmoid junction; M48.54XA Collapsed vertebra, not elsewhere classified, thoracic region, initial encounter for fracture; G82.20 Paraplegia, unspecified; R06.02 Shortness of breath; I10 Essential (primary) hypertension; Z79.899 Other long term (current) drug therapy; Z85.048 Personal history of other malignant neoplasm of rectum, rectosigmoid junction, and anus
CPT/HCPCS: 99285; 71270; 96365; 96375; 71045; 93005; 74178; 85025 ×2; 80048; 83690; 80076; 36415; 84484; 85730; 87081; 86850; 83880; J2270; J2405 ×2; J7050; J0696; Q9967